=== PATIENT | male | born 1955 | race Caucasian/White ===

== ENCOUNTER 2021-10-06 05:25 | Day surgery (SDC) | payer MEDICARE, BC ==
[2021-09-30 13:10] LABS: BASOPHILS % (AUTO) 0.6 % (0-1); EOSINOPHILS # (AUTO) 0.2 X10'3 (0-0.9); EOSINOPHILS % (AUTO) 2.7 % (0-6); LYMPHOCYTES # (AUTO) 2.3 X10'3 (1.1-4.8); LYMPHOCYTES % (AUTO) 40.8 % (21-51); MEAN CORPUSCULAR HEMOGLOBIN 30.1 PG (27.0-31.0); MEAN CORPUSCULAR HGB CONC 33.8 g/dL (33.0-36.5); MEAN CORPUSCULAR VOLUME 89.1 FL (78-98); MEAN PLATELET VOLUME 7.5 FL (7.4-10.4); MONOCYTES # (AUTO) 0.8 X10'3 (0-0.9); NEUTROPHILS # (AUTO) 2.4 X10'3 (1.8-7.7); NEUTROPHILS % (AUTO) 41.9 % (42-75); PRE OP HEMOGLOBIN 14.5 g/dL (14.0-17.9); PRE OP PLATELET COUNT 268 X10'3 (140-440); RED BLOOD COUNT 4.83 X10'6 (4.70-6.10); RED CELL DISTRIBUTION WIDTH 13.2 % (11.5-14.5)
[2021-09-30 13:25] LABS: ALBUMIN 3.9 G/DL (3.4-5.0); ALBUMIN/GLOBULIN RATIO 1.1 (1.1-1.5); ALKALINE PHOSPHATASE 57 IU/L (46-116); BLOOD UREA NITROGEN 19 MG/DL (7-18); BUN/CREATININE RATIO 20.4 (5.4-32.0); CALCIUM 9.3 MG/DL (8.5-10.1); CHLORIDE 106 MMOL/L (99-107); CREATININE 0.93 MG/DL (0.60-1.10); PRE OP ALT 36 U/L (30-65); PRE OP ANION GAP 9 (8-16); PRE OP AST 28 U/L (10-37); PRE OP BILIRUB, TOTAL 0.4 MG/DL (0.0-1.0); PRE OP GLUCOSE 94 MG/DL (70-104); PRE OP POTASSIUM 4.3 MMOL/L (3.4-5.1); PRE OP SODIUM 143 MMOL/L (135-145); TOTAL CARBON DIOXIDE 28.2 MMOL/L (24-32); TOTAL PROTEIN 7.3 G/DL (6.4-8.2); eGFR 82 ML/MIN
[2021-10-06] VITALS (13 sets, daily range): BP systolic 101–123; BP diastolic 54–83
[~2021-10-06] VITALS: Ht 182.9 cm; Wt 77.1 kg
[~2021-10-06 05:25] MED LIST: MULT-1085 PO; OMEG1CAP2 PO; RED600TA PO; SAW450CA7 PO; UBID1CAP54 PO; ringers solution, lacted 1,000 ML IV SCH
[2021-10-06] MEDS ORDERED: cefazolin/dext.iso 2gm/50ml IV ONE (05:30)
[2021-10-06] MEDS ORDERED: famotidine 20mg tablet PO ONE (05:30)
[2021-10-06] MEDS ORDERED: BUPIVAcaine 0.5% inj/PF 30 ML ONE (06:51)
[2021-10-06] MEDS ORDERED: lidocaine 1%/epinephrine 1:100,000 inj. 50ml multi-dose vial ONE (06:51)
[2021-10-06] MEDS ORDERED: tobramycin 40mg/ml inj ONE ×2 (06:52→08:41)
[2021-10-06] MEDS ORDERED: morphine 2 MG/ML inj. syringe IV PRN (07:30)
[2021-10-06] MEDS ORDERED: ondansetron/PF 4mg/2ml inj IV PRN (07:30)
[2021-10-06] MEDS ORDERED: meperidine/PF 25mg/ml syringe IV PRN ×3 (07:30)
[2021-10-06] MEDS ORDERED: labetalol 20mg/4ml (5mg/ml) syringe IV PRN (07:30)
[2021-10-06] MEDS ORDERED: hydrALAZINE 20mg/ml inj. IV PRN (07:30)
[2021-10-06] MEDS ORDERED: ringers solution, lacted 1,000 ML IV SCH (07:30)
[2021-10-06] MEDS ORDERED: acetaminophen 1,000mg/100ml IV 100 ML IV PRN (07:30)
[2021-10-06] MEDS ORDERED: proCHLORperazine 10 MG/2 ml inj IV PRN (07:30)
[2021-10-06] MEDS ORDERED: morphine 4 MG/ML inj SYRINge IV PRN (07:30)
[2021-10-06] MEDS ORDERED: fentaNYL /PF 50mcg/ml 5ml ampule ONE (07:33)
[2021-10-06] MEDS ORDERED: midazolam 1 mg/ML 2ml injection ONE (07:33)
[2021-10-06] MEDS ORDERED: LIDOcaine 2% 5ml jelly ONE (08:04)
[2021-10-06] MEDS ORDERED: propofol inj 20 ML IV ONE (08:50)
[2021-10-06] MEDS ORDERED: ondansetron/PF 4mg/2ml inj ONE (08:50)
[2021-10-06] MEDS ORDERED: dexamethasone sod phosphate 4mg/ml inj. ONE (08:50)
[2021-10-06] MEDS ORDERED: LIDOcaine 2% (20mg/ml) 5ml vial ONE (08:50)
[2021-10-06] MEDS ORDERED: rocuronium 10mg/ml inj IV ONE (08:50)
[2021-10-06] MEDS ORDERED: 0.9 % SODIUM CHLORIDE 10 ML VIAL ONE (08:52)
[2021-10-06] MEDS ORDERED: ePHEDrine 50MG/ML INJ. ONE (08:52)
[2021-10-06] MEDS ORDERED: neostigmine methylsulfate 1 MG/ML 10ml vial ONE (10:22)
[2021-10-06] MEDS ORDERED: glycopyrrolate 0.2mg/ml inj ONE (10:22)
--- NOTE | 2021-10-06 10:35 | NUR ---
Received from OR via [facility], accompanied by Anesthesiologist DR GIBSON and report given by Anesthesiologist AND FLANGING OPERATOR. PT DROWSY, NO S/S OF DISTRESS/DISCOMFORT, VSS. ABDOMEN W/3 LAP SITES W/CLEAR TAPE COVERING 2X2'S CDI. Addendum: 10/06/21 at 1055 by Parris Dodge RN Amended: Links added.
--- NOTE | 2021-10-06 12:30 | NUR ---
PT UP AMBULATING, ATTEMPTING TO VOID. NO C/O. Addendum: 10/06/21 at 1338 by Parris Dodge RN Amended: Links added.
[2021-10-06] MEDS ORDERED: LIDOcaine 2% 10ml TOPICAL JELLY (Urojet) MM ONE (14:50)
--- NOTE | 2021-10-06 15:25 | NUR ---
PT UNABLE TO VOID, BLADDER SCANNED AT 13:50 W/108 ML. PT UP AND AMBULATING, DRINKING WATER, NO C/O PAIN, AN HOUR LATER STILL UNABLE TO VOID, RESCANNED BLADDER FOR [address] TENA IN TO SEE PT, ORDERS RECEIVED TO PLACE MADRID CATHETER AND D/C TO HOME. [address] [employer]TER PLACED W/ASEPTIC TECHNIQUE WITH RETURN OF YELLOW URINE 380 ML, PT TOLERATED WELL. D/C INSTRUCTIONS GIVEN AND GONE OVER W/PT AND PTS WHO VERBALIZED UNDERSTANDING. PT D/C TO HOME VIA W/C TO PRIVATE VEHICLE W/O INCIDENT. Addendum: 10/06/21 at 1629 by Parris Dodge RN Amended: Links added.
== END 2021-10-06 15:25 | disposition home or self-care (01) ==
LOC: PAS 05:25
PROVIDERS: ATTEND Colon & Rectal Surgery
DX: K40.20 Bilateral inguinal hernia, without obstruction or gangrene, not specified as recurrent (principal); Z20.822 Contact with and (suspected) exposure to COVID-19; Z87.891 Personal history of nicotine dependence; Z98.890 Other specified postprocedural states; Z79.899 Other long term (current) drug therapy
CPT/HCPCS: 36415; 49650; 80053; 82948; 85025; 93005; A6258; C1758; C1781; J1100; J2250; J2405; J2704; J2710; J3010; J3260; J3490; J7030; J7120; S0020; U0003; U0005; Z7506; Z7508; Z7512; A4215; A4618; A7000